=== PATIENT | female | born 1930 | race Caucasian/White ===

== ENCOUNTER 2017-02-18 10:10 | Emergency (ER) | payer OTHER ==
[2017-02-18 10:14] VITALS: TEMP 97.8; BMI 77.5
--- NOTE | 2017-02-18 10:30 | PDOC ---
Attending Attestation - Resident Resident Name: Itz Gonzáles - HPI HPI: 02/18/17 15:43 pt presents to the Ed complaining of dark stool on Tuesday and . Unclear from patient and family description whether dark stool was clots or melena or just dark stool. - Physicial Exam PE: 02/18/17 15:49 Exam is unermarkable. Guiac negative stool on rectal exam. - Medical Decision Making 02/18/17 16:09 Labs show no evidence of anemia. Case discussed with patient's PMD Dr. Car, who suggests that the patient be discharged with follow up in his office next week. Repeat HGB is stable. Will discharge home.
--- NOTE | 2017-02-18 10:44 | PDOC ---
History of Present Illness - General Chief Complaint: Rectal Bleed Stated Complaint: RECTAL BLEEDING Time Seen by Provider: 02/18/17 10:24 - History of Present Illness Initial Comments: 02/18/17 10:47 Patient is a 86 year old female with a PMH of HTN, HLD, DM, and CVA x3 who presents with a 4 day history of rectal bleeding. Patient reports that she began passing what seems like clots beginning 3 days ago. She states that there were no passing of clots 2 days ago. She then reports passing larger clots 1 day ago and a large clot earlier this morning. She spoke to her primary care provider who recommended that she be evaluated prompting her visit to the ED today. She states that she is otherwise asymptomatic. She denies fevers, chills, chest pain or SOB. Past History - Past Medical History Allergies/Adverse Reactions: Allergies Allergy/AdvReac Type Severity Reaction Status Date / Time No Known Allergies Allergy Verified 02/18/17 10:14 Home Medications: Ambulatory Orders Amlodipine Besylate 5 mg PO DAILY 02/18/17 Aspirin [Aspirin EC] 325 mg PO DAILY 02/18/17 Brinzolamide [Azopt] 5 ml OP BID 02/18/17 Ergocalciferol (Vitamin D2) [Vitamin D2] 2,000 unit PO DAILY 02/18/17 Mirabegron [Myrbetriq] 25 mg PO HS 02/18/17 Multivitamins [Tab-A-Vit -] 1 tab PO DAILY 02/18/17 Pravastatin Sodium [Pravachol (Nf)] 40 mg PO HS 02/18/17 Propylene Glycol/Peg 400/Pf [Systane 0.3-0.4% Eye Drops] 1 drop OU BID 02/18/17 Sennosides [Senna] 8.6 mg PO HS 02/18/17 CVA: Yes (x3) Diabetes: Yes HTN: Yes Hypercholesterolemia: Yes Other medical history: left blindness - Psycho/Social/Smoking Cessation Hx Suicidal Ideation: No Smoking History: Never smoked Information on smoking cessation initiated: No Hx Alcohol Use: No Drug/Substance Use Hx: No Substance Use Type: None Review of Systems - Review of Systems Constitutional: No: Chills, Fever HEENTM: No: Recent change in vision, Throat Pain Respiratory: No: Cough, Shortness of Breath Cardiac (ROS): No: Chest Pain, Lightheadedness, Palpitations ABD/GI: Yes: Diarrhea, Other (Passing clots). No: Nausea, Vomiting, Tarry Stools : No: Dysuria Integumentary: No: Rash Neurological: No: Headache, Dizziness *Physical Exam - Vital Signs Last Vital Signs Temp Pulse Resp BP Pulse Ox 97.8 F 70 19 161/97 98 02/18/17 10:12 02/18/17 10:12 02/18/17 10:12 02/18/17 10:12 02/18/17 10:12 - Physical Exam Comments: 02/18/17 14:03 General Appearance: Nourished. No Apparent Distress HEENT: Normal Voice. No Pharyngeal Erythema, Tonsillar Exudate, or Tonsillar Erythema Respiratory/Chest: positive: Lungs Clear, Normal Breath Sounds. No Rales, Rhonchi, or Wheezing Cardiovascular: Regular Rhythm, Regular Rate. No Murmur, Gallop/S3, or Gallop/ S4 Gastrointestinal/Abdominal: Normal Bowel Sounds, Soft, Non-Tender, No Guarding, No Rebound Rectal Exam: normal exam. No melena, hemorrhoids Extremity: Normal Capillary Refill Integumentary: Normal Color, Dry, Warm Neurologic: Fully Oriented, Alert, Normal Mood/Affect, Normal Response ED Treatment Course - LABORATORY CBC & Chemistry Diagram: 02/18/17 15:00 02/18/17 11:15 Medical Decision Making - Medical Decision Making 02/18/17 12:32 Patient is a 86 year old female with a PMH of HTN, HLD, DM, and CVA x3 who presents with complaints of bloody stool. Given the patient's history, possible causes of her symptoms include internal hemorrhoid, GI bleed, diverticulitis, peptic ulcer. We will obtain a set of labs to evaluate for anemia and get a stool occult blood to evaluate for bleeding. Given her reported history of passing clots and age, we believe that she will likely need admission for observation. 02/18/17 13:35 Patient's stool was negative for blood. Her cbc demonstrated a normal hemoglobin. We contacted the patient's PCP Dr. Car and discussed the case with him at 13:29. Dr. Car was comfortable with discharge home and follow up in clinic in the next week. We will obtain a repeat CBC to evaluate for any change in H/H and if normal will discharge home with follow up with Dr. Car 02/18/17 15:37 Repeat cbc is stable. We will discharge the patient home with follow up with Dr. Car. Return precautions discussed with the patient and is agreeable with the plan. *DC/Admit/Observation/Transfer Diagnosis at time of Disposition: Rectal bleeding - Discharge Dispostion Disposition: HOME Condition at time of disposition: Improved - Referrals Referrals: Ilya Car MD [Primary Care Provider] - - Patient Instructions Printed Discharge Instructions: DI for Rectal Bleeding Additional Instructions: Please return to the ER if you experience worsening symptoms such as lightheadedness, weakness, bright red bloody stools, black tarry stools, or vomiting blood. Please follow up with Dr. Car within the next week to discuss your ER visit. - Attestations Physician Attestion: 02/18/17 14:20 I, Dr. Chris Youssef, attest that this document has been prepared under my direction and personally reviewed by me in its entirety. I further attest, that it accurately reflects all work, treatment, procedures and medical decision -making performed by me.
[2017-02-18 12:00] LABS: BASOPHIL 0.8 % (0-2.0); EOSINOPHIL 1.8 % (0-4.5); MCH 30.8 pg (25.7-33.7); MCHC 33.1 g/dl (32.0-36.0); MEAN CELL VOLUME 93.2 fl (80-96); MEAN PLT VOLUME 8.7 fl (7.5-11.1); PLATELET COUNT 279 K/MM3 (134-434); WHITE BLOOD COUNT 9.1 K/mm3 (4.0-10.0)
[2017-02-18 12:28] LABS: ALBUMIN 3.8 g/dl (3.4-5.0); ALK PHOS 125 U/L (45-117); ANION GAP 9 (8-16); BILIRUBIN,TOTAL 0.4 mg/dL (0.2-1.0); CALCIUM 9.3 mg/dL (8.5-10.1); CO2 26 mmol/L (21-32); CREATININE 0.7 mg/dL (0.55-1.02); GLUCOSE,RANDOM 99 mg/dL (74-106); SGOT/AST 21 U/L (15-37); SGPT/ALT 21 U/L (12-78); TOT PROT 7.1 g/dl (6.4-8.2)
[2017-02-18 12:32] LABS: INR 1.08 (0.82-1.09); PROTHROMBIN TIME (PATIENT) 11.9 SEC (9.98-11.88)
[2017-02-18 15:18] LABS: MCHC 33.3 g/dl (32.0-36.0); MEAN CELL VOLUME 93.2 fl (80-96); MEAN PLT VOLUME 8.9 fl (7.5-11.1); PLATELET COUNT 276 K/MM3 (134-434); WHITE BLOOD COUNT 9.1 K/mm3 (4.0-10.0)
[2017-02-18 15:54] VITALS: BP 143/55; PULSE 71
== END 2017-02-18 16:00 | disposition home or self-care (01) ==
LOC: JER 10:10
DX: K62.5 Hemorrhage of anus and rectum (principal); I10 Essential (primary) hypertension; E78.5 Hyperlipidemia, unspecified; E11.9 Type 2 diabetes mellitus without complications; Z86.73 Personal history of transient ischemic attack (TIA), and cerebral infarction without residual deficits
CPT/HCPCS: 36415; 80053; 82272; 85025; 85027; 85610; 99282-25

== ENCOUNTER 2019-05-15 10:58 | Emergency (ER) | payer OTHER ==
[2019-05-15 11:25] VITALS: BMI 33.2
--- NOTE | 2019-05-15 11:40 | PDOC ---
History of Present Illness <KristieRafiq - Last Filed: 05/15/19 12:57> - General History Source: Patient, Family - History of Present Illness Timing/Duration: other <Gary Brown - Last Filed: 05/15/19 15:30> - General Chief Complaint: Altered Mental Status Stated Complaint: ALTERED MENTAL STATUS Time Seen by Provider: 05/15/19 11:33 Past History <KristieRafiq - Last Filed: 05/15/19 12:57> - Past Medical History CVA: Yes (x3) COPD: No Diabetes: Yes GI Disorders: Yes (Diverticulosis 2006) HTN: Yes Hypercholesterolemia: Yes - Immunization History Immunization Up to Date: Yes - Psycho Social/Smoking Cessation Hx Smoking History: Never smoked Have you smoked in the past 12 months: No Information on smoking cessation initiated: No Hx Alcohol Use: No Drug/Substance Use Hx: No Substance Use Type: None <Gary Brown - Last Filed: 05/15/19 15:30> - Past Medical History Allergies/Adverse Reactions: Allergies Allergy/AdvReac Type Severity Reaction Status Date / Time No Known Allergies Allergy Verified 05/15/19 11:25 Home Medications: Ambulatory Orders Amlodipine Besylate 5 mg PO DAILY 02/18/17 Aspirin [Aspirin EC] 325 mg PO DAILY 02/18/17 Brinzolamide [Azopt] 5 ml OP BID 02/18/17 Ergocalciferol (Vitamin D2) [Vitamin D2] 2,000 unit PO DAILY 02/18/17 Mirabegron [Myrbetriq] 25 mg PO HS 02/18/17 Multivitamins [Tab-A-Vit -] 1 tab PO DAILY 02/18/17 Pravastatin Sodium [Pravachol (Nf)] 40 mg PO HS 02/18/17 Propylene Glycol/Peg 400/Pf [Systane 0.3-0.4% Eye Drops] 1 drop OU BID 02/18/17 Sennosides [Senna] 8.6 mg PO HS 02/18/17 Review of Systems - Review of Systems Constitutional: No: Chills, Fever Respiratory: No: Cough, Shortness of Breath Cardiac (ROS): No: Chest Pain ABD/GI: No: Diarrhea, Nausea, Vomiting, Abdominal cramping : No: Burning, Dysuria, Flank Pain, Hematuria Neurological: No: Headache, Numbness, Tingling, Weakness, Dizziness <Gary Brown Last Filed: 05/15/19 15:30> *Physical Exam - Vital Signs Last Vital Signs Temp Pulse Resp BP Pulse Ox 98.6 F 75 18 125/62 94 L 05/15/19 11:18 05/15/19 11:18 05/15/19 11:18 05/15/19 11:18 05/15/19 11:18 <Rafiq Flowers - Last Filed: 05/15/19 12:57> - Vital Signs Last Vital Signs Temp Pulse Resp BP Pulse Ox 98.6 F 75 18 125/62 94 L 05/15/19 11:18 05/15/19 11:18 05/15/19 11:18 05/15/19 11:18 05/15/19 11:18 - Physical Exam General Appearance: Yes: Appropriately Dressed. No: Apparent Distress HEENT: positive: Normal Voice Neck: positive: Supple Respiratory/Chest: positive: Lungs Clear, Normal Breath Sounds. negative: Respiratory Distress Cardiovascular: positive: Regular Rate, S1, S2 Gastrointestinal/Abdominal: positive: Soft. negative: Tender Musculoskeletal: negative: CVA Tenderness Integumentary: positive: Dry, Warm Neurologic: positive: Alert, Normal Mood/Affect (oriented to place and people only (thinks today is Tuesday)), Motor Strength 5/5 <Gary Brown Last Filed: 05/15/19 15:30> Heart Score/ECG Review #1 ECG reviewed & interpreted by me at: 12:21 General ECG Interpretation: Sinus Rhythm, Normal Rate (67), Normal Intervals ( qtc 422, qrs 112 with nonspecific intraventricular conduction delay), No acute ischemic changes <Rafiq Flowers - Last Filed: 05/15/19 12:57> ED Treatment Course - LABORATORY CBC & Chemistry Diagram: 05/15/19 12:39 05/15/19 12:39 <Rafiq Flowers - Last Filed: 05/15/19 12:57> - LABORATORY CBC & Chemistry Diagram: 05/15/19 12:39 05/15/19 12:39 <Gary Brown Last Filed: 05/15/19 15:30> Medical Decision Making - Medical Decision Making 05/15/19 11:41 88-year-old female with history of HTN, HLD, DM, not currently on meds, CVA 3, with difficulty ambulating and dementia as per family, (Oriented to place and people at baseline), on asa, BIB family for AMS. Per hospice/home health aide when she arrived to patients home at 9:00 am, patient thought she was at her daughter's home when, in fact, patient was at her own home where she resides alone with support from family and aid. Daughter states when she called patient on the phone, pt sounded confused. Patient able to give history and denies any medical complaints at this time, states she feels well. Pt alert and oriented to place and people but not to time in ED See exam Confusion this am No medical complaints Stable and well yuriy w/ unremarkable exam -ekg/cxr/labs/ua r/o medical source -Will get CTH given h/o multiple CVAs though no e/o acute stroke clinically, on asa 05/15/19 15:15 Workup unremarkable. Pt remained well yuriy and stable. Currently eating a sandwich in ED. Paged Dr Car to discuss dispo but no call back <Gary Brown - Last Filed: 05/15/19 15:30> Discharge <Rafiq Flowers - Last Filed: 05/15/19 12:57> - Discharge Information Problems reviewed: Yes <Gary Brown - Last Filed: 05/15/19 15:30> - Discharge Information Clinical Impression/Diagnosis: Confusion Condition: Good Disposition: HOME - Patient Discharge Instructions Patient Printed Discharge Instructions: DI for Altered Mental Status Additional Instructions: The cause of patient's symptoms are unclear as workup does not reveal any acute medical condition. Please follow-up with Dr. Car this week. Return to ER for any worsening of symptoms
[2019-05-15 12:56] LABS: BASO % 1.1 % (0-2.0); EOS % 1.6 % (0-4.5); HEMATOCRIT 41.4 % (32.4-45.2); HEMOGLOBIN 13.8 GM/dL (10.7-15.3); LYMPH % 22.6 % (8-40); MCH 31.4 pg (25.7-33.7); MCHC 33.3 g/dl (32.0-36.0); MEAN CELL VOLUME 94.5 fl (80-96); MEAN PLT VOLUME 8.7 fl (7.5-11.1); MONO % 10.6 % (3.8-10.2); NEUT % 64.1 % (42.8-82.8); PLATELET COUNT 304 K/MM3 (134-434); RBC 4.38 M/mm3 (3.60-5.2)
[2019-05-15 13:26] LABS: ALBUMIN 3.6 g/dl (3.4-5.0); ALK PHOS 116 U/L (45-117); ANION GAP 9 MMOL/L (8-16); BILIRUBIN,TOTAL 0.3 mg/dL (0.2-1); CALCIUM 9.4 mg/dL (8.5-10.1); CHLORIDE 105 mmol/L (98-107); CO2 25 mmol/L (21-32); GLUCOSE,RANDOM 110 mg/dL (74-106); POTASSIUM 4.6 mmol/L (3.5-5.1); SGOT/AST 17 U/L (15-37); SGPT/ALT 20 U/L (13-61); SODIUM 139 mmol/L (136-145); TOT PROT 7.2 g/dl (6.4-8.2)
[2019-05-15 15:02] LABS: URINE APPEARANCE CLEAR; URINE BILIRUBIN NEGATIVE (NEGATIVE); URINE COLOR YELLOW; URINE GLUCOSE (UA) NEGATIVE (NEGATIVE); URINE KETONE NEGATIVE (NEGATIVE)
[2019-05-15 15:03] LABS: PH,URINE 5.5 (5.0-8.0); URINE LEUK ESTERASE N (NEGATIVE); URINE NITRITE NEGATIVE (NEGATIVE); URINE UROBILINOGEN 0.2 mg/dL (0.2-1.0)
[2019-05-15 15:07] LABS: URINE PROTEIN 1+ (NEGATIVE)
[2019-05-15 15:08] VITALS: BP 144/59; PULSE 72; TEMP 98.7
--- NOTE | 2019-05-15 15:34 | EKG ---
Test Reason : Blood Pressure : / mmHG Vent. Rate : 067 BPM Atrial Rate : 067 BPM P-R Int : 192 ms QRS Dur : 112 ms QT Int : 400 ms P-R-T Axes : 050 -39 037 degrees QTc Int : 422 ms POOR DATA QUALITY, INTERPRETATION MAY BE ADVERSELY AFFECTED NORMAL SINUS RHYTHM LEFT AXIS DEVIATION ANTEROSEPTAL INFARCT , AGE UNDETERMINED ABNORMAL ECG NO PREVIOUS ECGS AVAILABLE Confirmed by Sabino Mcneill MD ([id number]) on 05/15/2019 3:34:23 PM Referred By: Confirmed By:Sabino Mcneill MD
== END 2019-05-15 15:25 | disposition home or self-care (01) ==
LOC: JER 10:58
DX: R41.0 Disorientation, unspecified (principal); I10 Essential (primary) hypertension; E78.5 Hyperlipidemia, unspecified; E11.9 Type 2 diabetes mellitus without complications; R26.2 Difficulty in walking, not elsewhere classified; F03.90 Unspecified dementia, unspecified severity, without behavioral disturbance, psychotic disturbance, mood disturbance, and anxiety; Z86.73 Personal history of transient ischemic attack (TIA), and cerebral infarction without residual deficits
CPT/HCPCS: 36415; 70450-TC; 71045-TC-FY; 80053; 81003; 82550; 84484; 85025; 87086; 93005; 93010; 99283-25